=== PATIENT | female | born 1960 | race Caucasian/White ===

== ENCOUNTER 2018-10-21 14:20 | Emergency (ER) | payer SELFPAY ==
[~2018-10-21] VITALS: Ht 154.9 cm; Wt 104.3 kg
[2018-10-21 14:23] VITALS: BP 112/90
[2018-10-21] MEDS ORDERED: cefTRIAXone SOD 1,000 MG VL IM ONE (15:00)
== END 2018-10-21 15:36 | disposition home or self-care (01) ==
LOC: ER 14:23
DX: B35.6 Tinea cruris (principal); E66.01 Morbid (severe) obesity due to excess calories; E11.9 Type 2 diabetes mellitus without complications; I10 Essential (primary) hypertension; Z68.41 Body mass index [BMI] 40.0-44.9, adult
CPT/HCPCS: 96372; 99283; J0696